=== PATIENT | female | born 1995 | race Caucasian/White ===

== ENCOUNTER 2023-08-12 09:28 | Day surgery (SDC) | payer OTHER ==
[2023-08-12] MEDS ORDERED: Depo-Medrol 40 MG/ML IM ONE (09:29)
[2023-08-12] MEDS ORDERED: Sodium Chloride 0.9(Preservative Free) 10 ML IJ ONE (09:29)
[2023-08-12 09:59] LABS: HCG URINE TEST NEGATIVE (NEGATIVE)
[2023-08-12] MEDS ORDERED: DIPRIVAN 200 MG/20 ML IV ONE (12:30)
[2023-08-12] MEDS ORDERED: Versed 2 MG/2 ML Injection ONE (12:31)
[2023-08-12] MEDS ORDERED: MORPHINE SULFATE 2 MG INJ ONE ×2 (12:51→13:07)
--- NOTE | 2023-08-12 13:53 | XRAY ---
Indication: Left L4-S1 transforaminal WAYLON. Intraoperative fluoroscopy provided for 22 seconds. 5 digital spot images submitted for interpretation demonstrates posterior needle tips projecting over the expected left L4 and L5 nerve roots. Small amount of contrast injected for needle tip placement.. Correlate with intraoperative findings/report.
--- NOTE | 2023-08-12 14:47 | XRAY ---
22 seconds of fluoroscopy was used in surgery for a left L4-S1 transforaminal WAYLON.
[2023-08-12] MEDS ORDERED: Lactated Ringers 1,000 ML IV ONE (17:02)
== END 2023-08-12 13:25 | disposition home or self-care (01) ==
LOC: SDC-PAIN 09:28
PROVIDERS: ATTEND Psychiatry & Neurology Pain Medicine
DX: M54.16 Radiculopathy, lumbar region (principal); E11.9 Type 2 diabetes mellitus without complications; Z79.899 Other long term (current) drug therapy
CPT/HCPCS: 64483; 64484; 72100; 77003; 81025; 82947; J1030; J2250; J2270; J2704; Q9966